=== PATIENT | male | born 1955 | race Caucasian/White ===

== ENCOUNTER → 2017-09-25 07:25 | Outpatient (CLI) | payer OTHER, SELFPAY ==
--- NOTE | 2017-09-25 | DI.MRI.S_ITS ---
PROCEDURE: MR KNEE LT WO CON INDICATIONS: LEFT KNEE PAIN TECHNIQUE: Noncontrast sagittal PD fast spin echo and T2 fast spin echo with fat saturation, sagittal 3-D FLASH with fat saturation; coronal T1 spin echo and PD fast spin echo with fat saturation, and axial PD fast spin echo with fat saturation through the knee. COMPARISON: Located Within [facility], CR, XR KNEE ARTHRITIC SERIES LT, 09/04/2017, 14:05. FINDINGS: Image quality: Excellent. Menisci: The lateral meniscus demonstrates normal morphology and internal signal but there is a nondisplaced horizontally oriented linear tear involving the posterior horn and mid body of the medial meniscus, extending to the inferior meniscal articular surface. The meniscal root ligaments appear intact. Cruciate ligaments: The anterior and posterior cruciate ligaments appear intact. Medial structures: The medial collateral ligament appears intact. The posterior oblique ligament, semimembranosus tendon insertions, oblique popliteal ligament, and meniscocapsular junction appear intact. Visualized portions of the pes anserinus tendons appear normal. No abnormal bursal fluid. Lateral structures: The lateral collateral ligament, long and short heads of the biceps femoris tendon appear intact. The popliteus tendon appears normal; the popliteofibular ligament appears intact. The posterosuperior and anteroinferior popliteomeniscal fascicles appear intact. The arcuate and fabellofibular ligaments appear intact, on either side of the lateral inferior geniculate artery. Iliotibial band appears normal. Anterior structures: The quadriceps and patellar tendons appear intact. Patellar alignment is normal. No femoral trochlear dysplasia or ventral trochlear prominence. No edema in the infrapatellar fat pad. Bones and cartilage: No bone marrow contusions or fractures. The cartilage of the medial femorotibial compartment, as well as the lateral facet of the patellofemoral compartment, appears mildly reduced in thickness. Joint space: There is a moderate excess of knee joint fluid, without intra-articular loose body. No Diaz's cyst. Normal appearing synovial plicae are incidentally noted. IMPRESSION: Posterior horn medial meniscal tear, nondisplaced, extending to the inferior meniscal articular surface which traverses into the posterior aspect of the mid body of the medial meniscus. This is associated with a moderate joint effusion without intra-articular loose body. Mild degenerative thinning of the articular cartilage is noted at the medial compartment and the lateral facet of the patellofemoral joint. Dictated by: Tayo Cardoza M.D. on 09/25/2017 at 14:23 Approved by: Tayo Cardoza M.D. on 09/25/2017 at 14:29
== END ==
PROVIDERS: PCP Internal Medicine; Visit Provider Orthopaedic Surgery
DX: M25.562 Pain in left knee (principal); M25.462 Effusion, left knee; M23.42 Loose body in knee, left knee
CPT/HCPCS: 73721

== ENCOUNTER → 2020-05-01 15:53 | Outpatient (CLI) | payer MEDICARE, OTHER, SELFPAY ==
--- NOTE | 2020-05-01 | DI.RAD.S_ITS ---
PROCEDURE: XR FOOT RT MIN 3V INDICATIONS: Non-pressure chronic ulcer of other part of unspecified foot TECHNIQUE: 3 views of the foot were acquired. COMPARISON: None. FINDINGS: Bones: No fractures or dislocations. No suspicious bony lesions. Mild diffuse interphalangeal joint space narrowing. No bony erosions. Soft tissues: No tibiotalar joint effusion. Achilles tendon appears normal. Vascular calcifications indicate atherosclerosis. IMPRESSION: 1. Mild diffuse interphalangeal joint degeneration. 2. Although no bony erosions are identified, plain film radiography is relatively insensitive in the acute phases of osteomyelitis and may not demonstrate radiographic changes for 15 days. If acute osteomyelitis is of clinical concern, nuclear medicine regional bone scan or MRI is recommended. Dictated by: David Monahan [facility] Interpreted: Jeimy Vegas MD on 05/01/2020 at 16:20 Approved by: Jeimy Vegas M.D. on 05/01/2020 at 18:14
== END ==
PROVIDERS: PCP Internal Medicine; Referring Provider Internal Medicine; Visit Provider Internal Medicine
DX: E11.621 Type 2 diabetes mellitus with foot ulcer (principal); L97.519 Non-pressure chronic ulcer of other part of right foot with unspecified severity; L03.115 Cellulitis of right lower limb; M19.071 Primary osteoarthritis, right ankle and foot
CPT/HCPCS: 73630; 80053; 80061; 85025; 85651; 86140

== ENCOUNTER → 2020-05-01 19:53 | Outpatient (ROUT) | payer MEDICARE, OTHER, SELFPAY ==
[2020-05-01 20:22] LABS: Add Manual Diff / Slide Review NO; Basophils Absolute Auto 100 /uL (0-100); Basophils Percent Auto 0.9 % (0-2); Eosinophils Absolute Auto 100 /uL (0-450); Eosinophils Percent Auto 1.4 % (2-4); Hematocrit 39.3 % (41-53); Hemoglobin 13.7 g/dL (13.5-17.5); Lymphocytes Absolute Auto 1900 /uL (1100-4500); Lymphocytes Percent Auto 20.8 % (25-40); Mean Corpuscular HGB Conc 34.8 % (30-36); Mean Corpuscular Hemoglobin 33.4 PG (26-34); Monocytes Absolute Auto 700 /uL (0-900); Neutrophils Absolute Auto 6400 /uL (1500-7000); Neutrophils Percent Auto 68.9 % (50-75); Platelet Count 232 X10^3/uL (150-400); Red Blood Cell Count 4.09 X10^6/uL (4.5-5.9); Red Cell Distribution Width 12.6 % (11.6-14.8); White Blood Cell Count 9.3 X10^3/uL (4.5-11.0)
[2020-05-01 20:25] LABS: HEMOLYSIS < 15 (0-50)
[2020-05-01 20:29] LABS: Alanine Aminotransferase 37 IU/L (<50); Albumin 4.8 g/dL (3.5-5.0); Albumin Globulin Ratio 2.1 (1.0-2.8); Alkaline Phosphatase 41 U/L (38-126); Aspartate Aminotransferase 34 IU/L (17-59); BUN Creatinine Ratio 20.8 (6-22); Bilirubin Total 0.4 mg/dL (0.2-1.3); Blood Urea Nitrogen 21 mg/dL (9-20); C-Reactive Protein Quant 0.6 mg/dL (<1.0); Calcium 9.9 mg/dL (8.4-10.2); Carbon Dioxide 27 mmol/L (22-32); Chloride 99 mmol/L (98-107); Cholesterol 238 mg/dL (140-199); Estimated Glomerular Filt Rate > 60.0 mL/min (>60); Globulin 2.3 g/dL (1.7-4.1); Glucose 247 mg/dL (80-110); HDL Cholesterol 49 mg/dL (40-60); Sodium 134 mmol/L (137-145); Total Protein 7.1 g/dL (6.3-8.2); Triglycerides 409 mg/dL (35-150)
[2020-05-01 20:32] LABS: Potassium 5.4 mmol/L (3.4-5.1)
[2020-05-01 20:48] LABS: Erythrocyte Sedimentation Rate 11 MM/HR (0-15)
== END ==
PROVIDERS: PCP Internal Medicine; Visit Provider Internal Medicine
DX: E11.621 Type 2 diabetes mellitus with foot ulcer (principal); L03.115 Cellulitis of right lower limb
CPT/HCPCS: 80053; 80061; 85025; 85651; 86140

== ENCOUNTER → 2020-05-12 15:13 | Outpatient (CLI) | payer MEDICARE, OTHER, SELFPAY ==
--- NOTE | 2020-05-12 15:18 | DI.MRI.S_ITS ---
PROCEDURE: MR RUN OFF 3 STAGES ABD START INDICATIONS: Peripheral vascular disease, unspecified TECHNIQUE: Precontrast axial and coronal TruFISP acquired through the abdomen and pelvis. Multi-station dynamic coronal MRA using Care Bolus timing from the kidneys to the ankles during the administration of contrast, with 3-dimensional maximum intensity projection (MIP) reformats constructed. COMPARISON: None. FINDINGS: Image quality: Excellent. ABDOMEN: Aorta: Aorta is normal in caliber and is patent. Renal arteries: [id number] left renal artery stenosis. Mesenteric vessels: Mild to moderate SMA stenosis. Celiac patent. SINGH grossly patent. Extravascular soft tissues: Visualized solid organs are normal in size on limited pre-contrast images. Bowel loops are normal in caliber. No free fluid. No retroperitoneal or mesenteric adenopathy by size criteria. No ventral hernias. Bones: Marrow demonstrates normal overall signal. PELVIS AND BILATERAL LOWER EXTREMITIES: Right sided vessels: Common iliac and external iliac common femoral are widely patent. Focal moderate distal SFA stenosis above Dwight's canal. Mild popliteal stenotic disease. Extensive anterior tibial disease with multifocal occlusions. Tibioperoneal trunk is patent. Short segment proximal peroneal occlusion. Either severe proximal posterior tibial artery stenotic disease or extensive proximal disease with short segment multifocal occlusions. Posterior tibial artery is normal caliber below the calf. Left sided vessels: Common iliac and external iliac and common femoral are patent. Mild diffuse SFA disease with focal moderate distal SFA stenosis. Multifocal popliteal stenosis including a severe geniculate or infrageniculate popliteal stenosis. Peroneal is occluded proximally. Anterior tibial has a short segment occlusion below the calf. Short segment proximal posterior tibial artery occlusion with recanalization at the mid calf, with a focal severe stenosis above the ankle. IMPRESSION: 1. No evidence of significant aortoiliac stenotic disease. 2. Right lower extremity runoff significant for a focal moderate distal SFA stenosis, extensive anterior tibial disease with multifocal occlusions, short segment proximal peroneal occlusion, and either severe proximal posterior tibial artery stenotic disease or multiple short segment proximal posterior tibial artery occlusions. 3. Left lower extremity runoff significant for a focal moderate distal SFA stenosis, multifocal popliteal stenosis including a severe geniculate or infrageniculate popliteal stenosis, and no continuous runoff vessels. The peroneal is occluded proximally. The anterior tibial has a short segment occlusion below the calf. There is a short segment proximal posterior tibial artery occlusion and a severe focal posterior tibial artery stenosis above the ankle. Dictated by: Yasmany Sterling M.D. on 05/13/2020 at 11:24 Approved by: Yasmany Sterling M.D. on 05/13/2020 at 11:36
== END ==
PROVIDERS: PCP Internal Medicine; Referring Provider Internal Medicine; Visit Provider Internal Medicine
DX: I70.203 Unspecified atherosclerosis of native arteries of extremities, bilateral legs (principal)
CPT/HCPCS: C8902; C8912; C8918; A9579

== ENCOUNTER → 2020-05-18 14:37 | Outpatient (CLI) | payer MEDICARE, OTHER, SELFPAY ==
--- NOTE | 2020-05-18 14:39 | DI.US.S_ITS ---
PROCEDURE: US CAROTID DOPPLER BI INDICATIONS: PVD TECHNIQUE: Color and pulse Doppler interrogation was performed of both carotid systems, with image documentation and velocity measurements. COMPARISON: [facility], , CAROTID ARTERY DOPPLER BILAT, 10/28/2015, 10:23. FINDINGS: Stenosis calculations are based on SRU (Society of Radiologists in Ultrasound) criteria. Right side: Brachial blood pressure: 132/78 mm Hg. Common carotid artery peak systolic velocity: 141 cm/sec. Internal carotid artery peak systolic velocity: 128 cm/sec. Internal carotid artery end diastolic velocity: 33 cm/sec. External carotid artery peak systolic velocity: 90 cm/sec. ICA/CCA peak systolic ratio: 0.9 . Phillips scale imaging description: Moderate scattered plaque. Percent internal carotid artery stenosis: 50-69% stenosis . Vertebral artery: Flow direction is antegrade. Left side: Brachial blood pressure: 140/85 mm Hg. Common carotid artery peak systolic velocity: 88 cm/sec. Internal carotid artery peak systolic velocity: 290 cm/sec. Internal carotid artery end diastolic velocity: 123 cm/sec. External carotid artery peak systolic velocity: 228 cm/sec. ICA/CCA peak systolic ratio: 3.4 . Phillips scale imaging description: Heavy scattered plaque. Percent internal carotid artery stenosis: 70% stenosis to near occlusion . Vertebral artery: Not visualized. IMPRESSION: 1. 70% stenosis to near occlusion of the left internal carotid artery. 2. 50-69% right internal carotid artery stenosis. Dictated by: David Monahan [facility] Interpreted: Yasmany Sterling MD on 05/18/2020 at 15:21 Approved by: Yasmany Sterling M.D. on 05/18/2020 at 16:01
== END ==
PROVIDERS: PCP Internal Medicine; Referring Provider Internal Medicine; Visit Provider Internal Medicine
DX: I65.23 Occlusion and stenosis of bilateral carotid arteries (principal)
CPT/HCPCS: 93880

== ENCOUNTER → 2020-08-10 18:52 | Outpatient (ROUT) | payer MEDICARE, OTHER, SELFPAY ==
[2020-08-10 19:54] LABS: BUN Creatinine Ratio 20.5 (6-22); Blood Urea Nitrogen 17 mg/dL (9-20); Carbon Dioxide 26 mmol/L (22-32); Chloride 95 mmol/L (98-107); Estimated Glomerular Filt Rate > 60.0 mL/min (>60); Glucose 141 mg/dL (80-110); HEMOLYSIS < 15 (0-50); Potassium 6.1 mmol/L (3.4-5.1); Sodium 133 mmol/L (137-145)
== END ==
PROVIDERS: PCP Internal Medicine; Visit Provider Internal Medicine
DX: R91.1 Solitary pulmonary nodule (principal); I10 Essential (primary) hypertension
CPT/HCPCS: 80048

== ENCOUNTER → 2020-08-12 14:40 | Outpatient (CLI) | payer MEDICARE, OTHER, SELFPAY ==
--- NOTE | 2020-08-12 14:42 | DI.NM.S_ITS ---
PROCEDURE: NM BONE 3 PHASE RADIOPHARMACEUTICAL: 19.3 mCi Tc-99m MDP IV. INDICATIONS: Cellulitis of right lower limb TECHNIQUE: Multiple bone scintigrams were obtained after intravenous injection of Tc-99m MDP, including flow, blood pool, and delayed images centered to the region of interest. COMPARISON: [facility], CR, XR FOOT RT MIN 3V, 05/01/2020, 16:06. FINDINGS: A triple phase bone scan was obtained, including flow, blood pool and delayed images of the ankles and feet. There is subtle increased uptake at the base of the left 1st toe on flow and blood pool images; otherwise symmetrical vascular activity to distal lower extremities on flow and blood pool images. Delayed images demonstrate mildly increased uptake in the left ankle, the base of the great toes bilaterally and the 1st interphalangeal joints bilaterally, compatible with osteoarthritic changes. IMPRESSION: 1. No scintigraphic findings to suggest osteomyelitis in the right ankle or foot. 2. Osteoarthritic changes bilaterally. 3. Subtle increased activity at the base of the left great toe on flow and blood pool images, probably secondary to nonspecific inflammation. If clinically indicated, x-ray of the left foot is recommended for correlation. Dictated by: Michael Bull M.D. on 08/13/2020 at 14:37 Approved by: Michael Bull M.D. on 08/13/2020 at 16:04
== END ==
PROVIDERS: PCP Internal Medicine; Referring Provider Internal Medicine; Visit Provider Internal Medicine
DX: R91.1 Solitary pulmonary nodule (principal); L03.115 Cellulitis of right lower limb
CPT/HCPCS: 78315; A9503

== ENCOUNTER → 2020-08-13 08:37 | Outpatient (CLI) | payer MEDICARE, OTHER, SELFPAY ==
--- NOTE | 2020-08-13 | DI.CT.S_ITS ---
PROCEDURE: CT CHEST W CON INDICATIONS: Pulmonary nodule Cellulitis of right lower limb TECHNIQUE: After the administration of intravenous contrast, 5 mm thick sections acquired from the pulmonary apices to the posterior costophrenic angles. 1 mm axial lung, 5 mm thick coronal and sagittal reformats and 7 mm axial MIP were acquired. For radiation dose reduction, the following was used: automated exposure control, adjustment of mA and/or kV according to patient size. COMPARISON: None. FINDINGS: Lungs: Bilateral scattered calcified granulomas. There is upper lobe predominant centrilobular emphysema. Multiple pulmonary nodules seen in the right upper lobe with clustered appearance and measuring up to 1.1 x 0.9 cm on image 97/3 and 1.1 x 1.0 cm on image 90/3. Additional smaller cluster nodule seen within the right middle lobe for example image 146/3. 1.1 x 0.7 cm nodule seen in the right lung base on image 167/3. Scattered atelectasis and scarring is noted. No acute consolidation Airway thickening in keeping with nonspecific bronchitis and/or reactive airways disease. Pleura: No pleural effusion or pneumothorax. Heart: Mildly enlarged heart. Coronary artery calcifications are present. Trace pericardial fluid. Chest nodes: There are calcified hilar and mediastinal lymph nodes. No pathologic enlargement. Thyroid gland: Nonspecific left-sided thyroid calcification Aorta: Normal in size. Pulmonary arteries: Normal. Esophagus: Normal. Upper abdomen: Hepatic steatosis. Bones: Diffuse spondylitic changes and facet disease. IMPRESSION: Multiple right-sided pulmonary nodules as detailed above with the largest seen in the right upper lobe measuring 1.1 cm and in the right lung base measuring 1.1 cm. Recommend further evaluation with PET-CT to assess the malignant potential given the absence of relevant comparison studies and/or, short interval [address] follow-up . Differential includes bronchogenic carcinoma, metastatic disease or sequela of chronic granulomatous disease. Airway thickening in keeping with nonspecific bronchitis and/or reactive airways disease. Emphysema Cardiomegaly and coronary atherosclerosis Additional chronic and incidental findings as above. Dictated by: Grey Perales M.D. on 08/13/2020 at 12:28 Approved by: Grey Perales M.D. on 08/13/2020 at 12:36
== END ==
PROVIDERS: PCP Internal Medicine; Referring Provider Internal Medicine; Visit Provider Internal Medicine
DX: R91.8 Other nonspecific abnormal finding of lung field (principal); L03.115 Cellulitis of right lower limb; J43.2 Centrilobular emphysema; I51.7 Cardiomegaly; I25.10 Atherosclerotic heart disease of native coronary artery without angina pectoris
CPT/HCPCS: 71260; Q9967

== ENCOUNTER → 2020-08-31 19:05 | Outpatient (ROUT) | payer MEDICARE, OTHER, SELFPAY ==
[2020-08-31 19:27] LABS: HEMOLYSIS < 15 (0-50); Potassium 4.9 mmol/L (3.4-5.1)
== END ==
PROVIDERS: PCP Internal Medicine; Visit Provider Internal Medicine
DX: E87.5 Hyperkalemia (principal)
CPT/HCPCS: 84132

== ENCOUNTER → 2020-09-21 15:09 | Outpatient (CLI) | payer MEDICARE, OTHER, SELFPAY ==
[2020-09-21 17:09] LABS: Digoxin 1.5 ng/mL (0.8-2.0)
== END ==
PROVIDERS: PCP Internal Medicine; Referring Provider Internal Medicine Cardiovascular Disease; Visit Provider Internal Medicine Cardiovascular Disease
DX: I48.91 Unspecified atrial fibrillation (principal); I65.22 Occlusion and stenosis of left carotid artery
CPT/HCPCS: 36415; 80162

== ENCOUNTER → 2020-12-04 09:21 | Outpatient (CLI) | payer MEDICARE, OTHER, SELFPAY | PROVIDERS: PCP Internal Medicine; Referring Provider Podiatrist; Visit Provider Nurse Practitioner Family | DX: I73.9 Peripheral vascular disease, unspecified (principal); L97.411 Non-pressure chronic ulcer of right heel and midfoot limited to breakdown of skin; E11.40 Type 2 diabetes mellitus with diabetic neuropathy, unspecified; E11.622 Type 2 diabetes mellitus with other skin ulcer; E11.59 Type 2 diabetes mellitus with other circulatory complications; I25.10 Atherosclerotic heart disease of native coronary artery without angina pectoris | CPT/HCPCS: 87070; 87075; 87205; 93922; 97602; 99204; 99214 ==

== ENCOUNTER → 2021-08-20 11:52 | Outpatient (CLI) | payer MEDICARE, OTHER, SELFPAY ==
[2021-08-20 13:14] LABS: Hematocrit 40.4 % (41-53); Hemoglobin 13.9 g/dL (13.5-17.5); Mean Corpuscular HGB Conc 34.5 % (30-36); Mean Corpuscular Hemoglobin 33.5 PG (26-34); Platelet Count 207 X10^3/uL (150-400); Red Blood Cell Count 4.17 X10^6/uL (4.5-5.9); Red Cell Distribution Width 12.7 % (11.6-14.8); White Blood Cell Count 7.3 X10^3/uL (4.5-11.0)
[2021-08-20 13:44] LABS: Hemoglobin A1C% w Est Avg Glu 6.6 % (4.0-6.0)
[2021-08-20 13:48] LABS: Alanine Aminotransferase 15 IU/L (<50); Albumin 4.7 g/dL (3.5-5.0); Albumin Globulin Ratio 2.6 (1.0-2.8); Alkaline Phosphatase 35 U/L (38-126); Aspartate Aminotransferase 22 IU/L (17-59); BUN Creatinine Ratio 16.7 (6-22); Bilirubin Total 0.5 mg/dL (0.2-1.3); Blood Urea Nitrogen 16 mg/dL (9-20); Calcium 9.6 mg/dL (8.4-10.2); Carbon Dioxide 27 mmol/L (22-32); Chloride 102 mmol/L (98-107); Cholesterol 191 mg/dL (140-199); Estimated Glomerular Filt Rate > 60 mL/min (>60); Globulin 1.8 g/dL (1.7-4.1); Glucose 122 mg/dL (80-110); HDL Cholesterol 53 mg/dL (40-60); HEMOLYSIS < 15 (0-50); LDL Cholesterol Calculated 102 mg/dL (<100); Potassium 5.1 mmol/L (3.4-5.1); Sodium 137 mmol/L (137-145); Total Protein 6.5 g/dL (6.3-8.2); Triglycerides 179 mg/dL (35-150)
[2021-08-20 15:05] LABS: TSH w/ Reflex to FT4 2.03 uIU/mL (0.47-4.68)
== END ==
PROVIDERS: PCP Internal Medicine; Referring Provider Internal Medicine; Visit Provider Internal Medicine
DX: E78.2 Mixed hyperlipidemia (principal); E11.51 Type 2 diabetes mellitus with diabetic peripheral angiopathy without gangrene; I48.20 Chronic atrial fibrillation, unspecified
CPT/HCPCS: 36415; 80053; 80061; 83036; 84443; 85027

== ENCOUNTER → 2022-02-23 12:22 | Outpatient (CLI) | payer MEDICARE, OTHER, SELFPAY ==
[2022-02-23 13:14] LABS: Influenza A - CEPHEID Flu A NEGATIVE (NEGATIVE); Influenza B - CEPHEID Flu B NEGATIVE (NEGATIVE); Respiratory Syncytial Virus POSITIVE (Negative)
[2022-02-23 13:40] LABS: COVID-19 CEPHEID 4-PLEX PCR Negative (Negative)
== END ==
PROVIDERS: PCP Internal Medicine; Visit Provider Nurse Practitioner Family
DX: R05.9 Cough, unspecified (principal)
CPT/HCPCS: 0241U

== ENCOUNTER → 2022-02-23 12:44 | Outpatient (CLI) | payer MEDICARE, OTHER, SELFPAY ==
--- NOTE | 2022-02-23 12:46 | DI.RAD.S_ITS ---
PROCEDURE: XR CHEST 2V INDICATIONS: Cough TECHNIQUE: 2 views of the chest were acquired. COMPARISON: NM, NM PET CT FUSION SKULL 2 THIGH, 09/02/2020, 9:55. [facility], CT, CT CHEST W CON, 08/13/2020, 9:01. FINDINGS: Surgical changes and devices: None. Lungs and pleura: Lungs are clear, aside from 2 nodular opacities involving the right upper lobe which appears similar prior CT scan dated 08/13/2020. No pleural effusions or pneumothorax. Mediastinum: Mediastinal contours are normal. Heart size is normal. Bones and chest wall: No suspicious bony abnormalities. Soft tissues appear unremarkable. IMPRESSION: 1. Nodular opacities redemonstrated involving the right upper lobe which appears similar to prior CT scan dated 08/13/2020 and appear to be benign nodules based on PET scan findings dated 09/02/2020. 2. No source for cough identified. Dictated by: David MCGEE Interpreted: Pedro Lua MD on 02/23/2022 at 13:21 Approved by: Pedro Lua M.D. on 02/23/2022 at 17:42
== END ==
PROVIDERS: PCP Internal Medicine; Referring Provider Nurse Practitioner Family; Visit Provider Nurse Practitioner Family
DX: R05.9 Cough, unspecified (principal)
CPT/HCPCS: 0241U; 71046

== ENCOUNTER → 2022-08-11 09:33 | Outpatient (CLI) | payer MEDICARE, OTHER, SELFPAY ==
[2022-08-11 10:53] LABS: Hematocrit 42.3 % (41-53); Hemoglobin 14.7 g/dL (13.5-17.5); Mean Corpuscular HGB Conc 34.8 % (30-36); Mean Corpuscular Volume 94.8 fL (80-100); Platelet Count 188 X10^3/uL (150-400); Red Blood Cell Count 4.46 X10^6/uL (4.5-5.9); Red Cell Distribution Width 12.7 % (11.6-14.8); White Blood Cell Count 6.7 X10^3/uL (4.5-11.0)
[2022-08-11 11:10] LABS: Alanine Aminotransferase 21 IU/L (<50); Albumin 4.6 g/dL (3.5-5.0); Albumin Globulin Ratio 1.8 (1.0-2.8); Alkaline Phosphatase 47 U/L (38-126); Aspartate Aminotransferase 24 IU/L (17-59); BUN Creatinine Ratio 15.7 (6-22); Bilirubin Total 0.6 mg/dL (0.2-1.3); Blood Urea Nitrogen 13 mg/dL (9-20); Calcium 9.7 mg/dL (8.4-10.2); Carbon Dioxide 32 mmol/L (22-32); Chloride 100 mmol/L (98-107); Cholesterol 217 mg/dL (140-199); Estimated Glomerular Filt Rate > 60 mL/min (>60); Globulin 2.5 g/dL (1.7-4.1); Glucose 173 mg/dL (80-110); HDL Cholesterol 54 mg/dL (40-60); HEMOLYSIS < 15 (0-50); LDL Cholesterol Calculated 133 mg/dL (<100); Potassium 5.1 mmol/L (3.4-5.1); Sodium 139 mmol/L (137-145); Total Protein 7.1 g/dL (6.3-8.2); Triglycerides 150 mg/dL (35-150)
[2022-08-11 11:14] LABS: Creatinine Urine Random 35.2 mg/dL
[2022-08-11 11:19] LABS: Microalbumi Creatinin Ratio Ur 110.7 ug/mg CR (<30); Microalbumin Urine Random 3.9 mg/dL (0-1.6)
[2022-08-11 11:38] LABS: TSH w/ Reflex to FT4 2.39 uIU/mL (0.47-4.68)
== END ==
PROVIDERS: PCP Internal Medicine; Referring Provider Internal Medicine; Visit Provider Internal Medicine
DX: E78.2 Mixed hyperlipidemia (principal); R55 Syncope and collapse; I48.20 Chronic atrial fibrillation, unspecified; I25.10 Atherosclerotic heart disease of native coronary artery without angina pectoris; E11.51 Type 2 diabetes mellitus with diabetic peripheral angiopathy without gangrene
CPT/HCPCS: 36415; 80053; 80061; 82043; 82570; 83036; 84443; 85027

== ENCOUNTER 2022-08-18 06:19 | Emergency (ER) | payer MEDICARE, OTHER, SELFPAY ==
[2022-08-18] VITALS (19 sets, daily range): BP systolic 135–186; BP diastolic 79–113; PULSE 78–130; RESP 11–22; TEMP 36.1; O2SAT 90–96; BMI 27.1
--- NOTE | 2022-08-18 06:23 | DI.RAD.S_ITS ---
PROCEDURE: XR CHEST 1V INDICATIONS: SOB TECHNIQUE: One view of the chest was acquired. COMPARISON: [facility], , XR CHEST 2V, 02/23/2022, 12:49. FINDINGS: Surgical changes and devices: Leadless cardiac device projects over the left chest. Lungs and pleura: Stable nodular densities in the right upper lung zone. No pleural effusions or pneumothorax. No focal consolidation. Mediastinum: Mediastinal contours appear stable. Heart size is mildly enlarged. Bones and chest wall: No suspicious bony lesions. Overlying soft tissues appear unremarkable. IMPRESSION: Redemonstration of mild cardiomegaly. No acute cardiopulmonary abnormality seen. No focal consolidation. Dictated by: Alcides Delatorre M.D. on 08/18/2022 at 7:44 Approved by: Alcides Delatorre M.D. on 08/18/2022 at 7:50
[2022-08-18 06:41] LABS: Add Manual Diff / Slide Review NO; Basophils Absolute Auto 100 /uL (0-100); Eosinophils Absolute Auto 300 /uL (0-450); Eosinophils Percent Auto 1.8 % (2-4); Hematocrit 43.5 % (41-53); Hemoglobin 14.7 g/dL (13.5-17.5); Lymphocytes Absolute Auto 3200 /uL (1100-4500); Lymphocytes Percent Auto 23.5 % (25-40); Mean Corpuscular HGB Conc 33.9 % (30-36); Mean Corpuscular Hemoglobin 32.7 PG (26-34); Mean Corpuscular Volume 96.5 fL (80-100); Monocytes Absolute Auto 1100 /uL (0-900); Monocytes Percent Auto 7.7 % (3-14); Neutrophils Absolute Auto 9100 /uL (1500-7000); Platelet Count 247 X10^3/uL (150-400); Red Blood Cell Count 4.51 X10^6/uL (4.5-5.9); Red Cell Distribution Width 12.5 % (11.6-14.8); White Blood Cell Count 13.8 X10^3/uL (4.5-11.0)
--- NOTE | 2022-08-18 06:42 | ED.CHESTPAIN ---
HPI - Chest Pain <Octavio Calderon, DO - Last Filed: 08/18/22 18:05> General Chief Complaint: Chest Pain Stated Complaint: hard time breathing Time Seen by Provider: 08/18/22 06:22 Source: patient and family Mode of arrival: Wheelchair Limitations: no limitations History of Present Illness HPI narrative: Patient is a 67-year-old male. Has not extensive vascular injury to include peripheral cardiovascular and carotid vascular issues. He also his extensive cardiac history. Has had stents placed approximately 11 years ago. He is also in persistent AFib. He is on anticoagulation. 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 EKG at that time showed atrial fibrillation with a slow ventricular response. Review of the note showed that his heart rate was in the 40s. His metoprolol was decreased from 100 mg a day to 50 mg a day. He states he normally takes that medication in the morning however he is not taken it yet today. He states that approximately 0500 hours this morning he was awake. He was sitting at home. He states that he had a fairly sudden onset of some chest discomfort and shortness of breath. He states he was not feel like his heart was beating fast at the time. His took his blood pressure and had a systolic blood pressure in the 160s and a heart rate in the 60s. The chest discomfort and shortness of breath continued. He did take some nitroglycerin at home. This was an old prescription however he does think that it actually helped his symptoms quite a bit. Here in the emergency department he states that his chest discomfort is almost gone and his shortness of breath has almost completely resolved although he is not back to normal. He frequently does get chest discomfort that resolves on its own but this is somewhat different and more intense than what it normally is. Also while driving to the emergency department today he had what appears to be a syncopal episode. This was reported by his . She states that he became very rigid in his eyes rolled back into his head and he slumped 1 side. She thinks that the episode lasted approximately 30 seconds but completely resolved. Prior to the episode the patient states that he did feel like his heart was beating fast and he was short of breath but he does not specifically remember the event. There did not appear to be any postictal state afterwards. This is very similar to the 2 syncopal episodes that he had back in April and May of this year. Related Data Home Medications Medication Instructions Recorded Confirmed latanoprost 0.005 % eye drops 1 drp EYE-BOTH QPM 08/20/21 08/11/22 nitroglycerin 2 % transdermal 1 inch transdermal DAILY PRN 08/20/21 08/11/22 ointment (Nitro-Bid) rivaroxaban 20 mg tablet (Xarelto) 20 mg PO DAILY 08/20/21 08/11/22 metoprolol succinate 100 mg 50 mg PO DAILY 08/11/22 08/11/22 tablet,extended release 24 hr Previous Rx's Medication Instructions Recorded albuterol sulfate 90 mcg/actuation 2 puff inhalation Q6H PRN 08/20/21 aerosol inhaler shortness of breath or wheezing #8.5 grams metformin 500 mg tablet 500 mg PO BID #180 tabs 08/20/21 benazepril 20 mg tablet 20 mg PO DAILY #90 tabs 10/11/21 Diabetic orthotics/diabetic shoes #1 ea 11/22/21 benzonatate 100 mg capsule 100 mg PO BID PRN cough #20 caps 02/23/22 pentoxifylline 400 mg See Rx Instructions .Route 04/22/22 tablet,extended release .COMPLEX #270 tabs tramadol 50 mg tablet 50 mg PO Q6H PRN pain #90 tabs 08/12/22 Allergies Allergy/AdvReac Type Severity Reaction Status Date / Time Penicillins Allergy Mild Rash Verified 08/11/22 07:52 allopurinol AdvReac Mild Malaise Verified 08/11/22 07:52 amitriptyline AdvReac Mild lethargy Verified 08/11/22 07:52 atorvastatin AdvReac Mild vision loss Verified 08/11/22 07:52 duloxetine [From Cymbalta] AdvReac Mild Zombie like Verified 08/11/22 07:52 gabapentin AdvReac Mild edema Verified 08/11/22 07:52 glyburide AdvReac Mild aches Verified 08/11/22 07:52 peanut AdvReac Mild Vomiting Verified 08/11/22 07:52 pregabalin [From Lyrica] AdvReac Mild Gastrointestinal Verified 08/11/22 07:52 Upset red yeast rice AdvReac Mild Muscle Pain Verified 08/11/22 07:52 rosuvastatin [From Crestor] AdvReac Mild Muscle Pain Verified 08/11/22 07:52 simvastatin AdvReac Mild muscle Verified 08/11/22 07:52 aches sitagliptin [From Januvia] AdvReac Mild Muscle Pain Verified 08/11/22 07:52 tramadol AdvReac Mild malaise Verified 08/11/22 07:52 antihistamines AdvReac Mild Uncoded 08/11/22 07:52 Review of Systems <Octavio Calderon DO - Last Filed: 08/18/22 18:05> Review of Systems ROS Unobtainable: All systems reviewed & are unremarkable except as noted in HPI and below Patient History <Octavio Calderon DO - Last Filed: 08/18/22 18:05> Medical History Asthma Cataracts, bilateral (~2011) Chronic anticoagulation Chronic atrial fibrillation Coronary artery disease (~2000) Do not resuscitate Erectile dysfunction Essential hypertension Fibromyalgia (~2017) Glaucoma (~2020) Gout (~2017) Mixed hyperlipidemia Peripheral arterial disease Primary osteoarthritis involving multiple joints Restless leg syndrome (~1999) Rosacea Type 2 diabetes mellitus with peripheral artery disease (~2001) Venous insufficiency Surgical History Anesthesia History of vascular surgery (~05/2020) Family History Father Stroke Mother Stroke Hypertension History of heart disease Social History Smoking Status: Never smoker Smoking Status: Never smoker alcohol intake frequency: a few times a month Substance Use Type: does not use Exam <DO Cielo Neville Last Filed: 08/18/22 18:05> Initial Vital Signs Initial Vital Signs: Vital Signs Temperature 97 F L 08/18/22 06:25 Pulse Rate 119 H 08/18/22 06:25 Respiratory Rate 18 08/18/22 06:25 Blood Pressure 179/102 H 08/18/22 06:25 Pulse Oximetry 94 08/18/22 06:25 Oxygen Delivery Method Room Air 08/18/22 06:25 Const General: cooperative, comfortable and well groomed HENMT Head: normal to inspection and normocephalic Resp Effort & Inspection: normal respiratory effort Auscultation: clear to auscultation bilaterally Cardio Rate: tachycardic Rhythm: abnormal rhythm GI Inspection: normal to inspection and non-distended Skin General: no rashes or lesions noted Neuro General: patient alert, patient awake, patient oriented x3 and moves all extremities Cognition: normal cognition Speech: speech normal Extrem General: No edema <Rhett Metzger DO - Last Filed: 08/18/22 11:27> Initial Vital Signs Initial Vital Signs: Vital Signs Temperature 97 F L 08/18/22 06:25 Pulse Rate 119 H 08/18/22 06:25 Respiratory Rate 18 08/18/22 06:25 Blood Pressure 179/102 H 08/18/22 06:25 Pulse Oximetry 94 08/18/22 06:25 Oxygen Delivery Method Room Air 08/18/22 06:25 Scores <Octavio Calderon DO - Last Filed: 08/18/22 18:05> GCS [place] coma scale eye opening: Spontaneous [place] coma scale verbal response: Orientated [place] coma scale motor response: Obey commands [place] coma scale total score: 15 HEART Score Heart Score history: Moderately Suspicious Heart Score EKG: Non-Specific repolarization disturbance Heart Score Age: > or = 65 years old Heart Score risk factors: > 3 risk factors or hx of atherosclerotic disease Heart Score troponin: < or = to normal limit Heart Score Total: 6 <Rhett Metzger DO - Last Filed: 08/18/22 11:27> GCS [place] coma scale total score: 15 HEART Score Heart Score Total: 6 Course <Octavio Calderon Last Filed: 08/18/22 18:05> Orders Ordered: ED Orders 08/18/22 09:28 Trop I [Troponin I] Stat 08/18/22 09:29 EKG-12 Lead Stat 08/18/22 10:16 COVID19 -Nasal RAPID Stat Discontinued Medications Metoprolol Succinate (Metoprolol Er 50 Mg Tablet) 50 mg PO NOW ONE Stop: 08/18/22 06:42 Last Admin: 08/18/22 06:52 Dose: 50 mg Documented By: AP Nitroglycerin (Nitroglycerin 0.4 Mg Sl Tab) 0.4 mg SL NOW ONE Stop: 08/18/22 07:43 Last Admin: 08/18/22 07:46 Dose: 0.4 mg Documented By: AT Vital Signs Vital signs: Vital Signs - 8 hr 08/18/22 10:30 08/18/22 10:30 08/18/22 11:00 Pulse Rate 92 H Respiratory Rate 15 Blood Pressure 162/98 H 141/98 H Pulse Oximetry 95 Oxygen Delivery Method Room Air 08/18/22 11:00 08/18/22 11:30 08/18/22 11:30 Pulse Rate 98 H 84 Respiratory Rate 12 12 Blood Pressure 162/95 H Pulse Oximetry 94 94 Oxygen Delivery Method Room Air 08/18/22 12:00 08/18/22 12:01 08/18/22 12:01 Pulse Rate 96 H 107 H Respiratory Rate 12 12 Blood Pressure 149/102 H Pulse Oximetry 96 94 Oxygen Delivery Method Room Air 08/18/22 12:30 08/18/22 12:30 08/18/22 13:00 Pulse Rate 78 Respiratory Rate 12 Blood Pressure 164/93 H 135/94 H Pulse Oximetry 95 Oxygen Delivery Method 08/18/22 13:00 Pulse Rate 87 Respiratory Rate 13 Blood Pressure Pulse Oximetry 96 Oxygen Delivery Method Room Air <Rhett Metzger DO - Last Filed: 08/18/22 11:27> Orders Ordered: ED Orders 08/18/22 09:28 Trop I [Troponin I] Stat 08/18/22 09:29 EKG-12 Lead Stat 08/18/22 10:16 COVID19 -Nasal RAPID Stat Discontinued Medications Metoprolol Succinate (Metoprolol Er 50 Mg Tablet) 50 mg PO NOW ONE Stop: 08/18/22 06:42 Last Admin: 08/18/22 06:52 Dose: 50 mg Documented By: AP Nitroglycerin (Nitroglycerin 0.4 Mg Sl Tab) 0.4 mg SL NOW ONE Stop: 08/18/22 07:43 Last Admin: 08/18/22 07:46 Dose: 0.4 mg Documented By: AT Consultations Consultation #1: discussed with Dr. Lopez ([facility]). After discussing presentation, and clinical course. He requests patient be transferred to [place]. Currently no beds due to staffing, promising for this afternoon. No specific intervention. Will call hospitalist. Time: 09:07 Consultation #2: discussed with hospitalist at [place], happy to accept Consultation #3: call back with second troponin result. No heparin given use of Xarelto Time: 10:20 Vital Signs Vital signs: Vital Signs - 8 hr 08/18/22 10:30 08/18/22 10:30 08/18/22 11:00 Pulse Rate 92 H Respiratory Rate 15 Blood Pressure 162/98 H 141/98 H Pulse Oximetry 95 Oxygen Delivery Method Room Air 08/18/22 11:00 08/18/22 11:30 08/18/22 11:30 Pulse Rate 98 H 84 Respiratory Rate 12 12 Blood Pressure 162/95 H Pulse Oximetry 94 94 Oxygen Delivery Method Room Air 08/18/22 12:00 08/18/22 12:01 08/18/22 12:01 Pulse Rate 96 H 107 H Respiratory Rate 12 12 Blood Pressure 149/102 H Pulse Oximetry 96 94 Oxygen Delivery Method Room Air 08/18/22 12:30 08/18/22 12:30 08/18/22 13:00 Pulse Rate 78 Respiratory Rate 12 Blood Pressure 164/93 H 135/94 H Pulse Oximetry 95 Oxygen Delivery Method 08/18/22 13:00 Pulse Rate 87 Respiratory Rate 13 Blood Pressure Pulse Oximetry 96 Oxygen Delivery Method Room Air MDM - Chest Pain <Octavio Calderon, - Last Filed: 08/18/22 18:05> Lab Data 08/18/22 06:30 08/18/22 06:30 Labs: Lab Results 08/18/22 08/18/22 08/18/22 Range/Units 06:30 06:30 06:30 WBC 13.8 H (4.5-11.0) X10^3/uL RBC 4.51 (4.5-5.9) X10^6/uL Hgb 14.7 (13.5-17.5) g/dL Hct 43.5 (41-53) % MCV 96.5 (80-100) fL MCH 32.7 (26-34) PG MCHC 33.9 (30-36) % RDW 12.5 (11.6-14.8) % Plt Count 247 (150-400) X10^3/uL Neut % (Auto) 66.0 (50-75) % Lymph % (Auto) 23.5 L (25-40) % Dickinson % (Auto) 7.7 (3-14) % Eos % (Auto) 1.8 L (2-4) % Baso % (Auto) 1.0 (0-2) % Neut # (Auto) 9100 H (7260-2467) /uL Lymph # (Auto) 3200 (7985-0183) /uL Dickinson # (Auto) 1100 H (0-900) /uL Eos # (Auto) 300 (0-450) /uL Baso # (Auto) 100 (0-100) /uL PT 12.1 (10.1-12.7) SECONDS INR 1.1 (0.9-1.3) APTT 27 (26-36) SECONDS Sodium 133 L (137-145) mmol/L Potassium 4.1 (3.4-5.1) mmol/L Chloride 94 L (98-107) mmol/L Carbon Dioxide 24 (22-32) mmol/L BUN 18 (9-20) mg/dL Creatinine 0.96 (0.66-1.25) mg/dL Estimated GFR > 60 (>60) mL/min BUN/Creatinine Ratio 18.8 (6-22) Glucose 331 H D (80-110) mg/dL Calcium 9.6 (8.4-10.2) mg/dL Magnesium 1.7 (1.6-2.3) mg/dL Total Bilirubin 0.8 (0.2-1.3) mg/dL AST 29 (17-59) IU/L ALT 26 (<50) IU/L Alkaline Phosphatase 53 (38-126) U/L Total Creatine Kinase 47 L (55-170) U/L CK-MB (CK-2) TNP CK-MB (CK-2) Rel Index TNP Troponin I 0.014 (0.01-0.034) ng/mL NT-Pro-B Natriuret Pep 1070 H (<125) pg/mL Total Protein 7.1 (6.3-8.2) g/dL Albumin 4.7 (3.5-5.0) g/dL Globulin 2.4 (1.7-4.1) g/dL Albumin/Globulin Ratio 2.0 (1.0-2.8) Lipase 126 (23-300) U/L SARS-CoV-2 (PCR) (Negative) 08/18/22 08/18/22 Range/Units 09:28 10:16 WBC (4.5-11.0) X10^3/uL RBC (4.5-5.9) X10^6/uL Hgb (13.5-17.5) g/dL Hct (41-53) % MCV (80-100) fL MCH (26-34) PG MCHC (30-36) % RDW (11.6-14.8) % Plt Count (150-400) X10^3/uL Neut % (Auto) (50-75) % Lymph % (Auto) (25-40) % Dickinson % (Auto) (3-14) % Eos % (Auto) (2-4) % Baso % (Auto) (0-2) % Neut # (Auto) (9461-6626) /uL Lymph # (Auto) (5366-3617) /uL Dickinson # (Auto) (0-900) /uL Eos # (Auto) (0-450) /uL Baso # (Auto) (0-100) /uL PT (10.1-12.7) SECONDS INR (0.9-1.3) APTT (26-36) SECONDS Sodium (137-145) mmol/L Potassium (3.4-5.1) mmol/L Chloride (98-107) mmol/L Carbon Dioxide (22-32) mmol/L BUN (9-20) mg/dL Creatinine (0.66-1.25) mg/dL Estimated GFR (>60) mL/min BUN/Creatinine Ratio (6-22) Glucose (80-110) mg/dL Calcium (8.4-10.2) mg/dL Magnesium (1.6-2.3) mg/dL Total Bilirubin (0.2-1.3) mg/dL AST (17-59) IU/L ALT (<50) IU/L Alkaline Phosphatase (38-126) U/L Total Creatine Kinase (55-170) U/L CK-MB (CK-2) CK-MB (CK-2) Rel Index Troponin I 0.175 H* (0.01-0.034) ng/mL NT-Pro-B Natriuret Pep (<125) pg/mL Total Protein (6.3-8.2) g/dL Albumin (3.5-5.0) g/dL Globulin (1.7-4.1) g/dL Albumin/Globulin Ratio (1.0-2.8) Lipase (23-300) U/L SARS-CoV-2 (PCR) Negative (Negative) Imaging Data Chest x-ray: Radiologist's Impression: Cardiomegaly. No acute pulmonary finding ECG Data Attestation: I personally reviewed and interpreted this ECG as follows: Prior ECG tracings: available for review Interpretation: Atrial fibrillation Ventricular rate 120 Normal axis QRS [address] T wave changes MDM Narrative Medical decision making narrative: Patient has a history of permanent AFib. He is anticoagulated. He is in AFib with rapid ventricular response. Review of his prior cardiology notes states that approximately 1 week ago his metoprolol was cut in half in his digoxin was discontinued secondary to a bradycardia problems. He is scheduled for multiple testing to include stress test which he has yet to have performed. He does have a ZIO patch on. He did take 2 nitroglycerin prior to arrival which he thinks maybe helped his discomfort and shortness of breath. Plan to be is to give him his morning dose of metoprolol to see if this will help his heart rate. His EKG other than the rate being high today is very similar in appearance to the EKG from his cardiology visit 1 week ago. Chest x-ray shows no signs of pneumonia. Care turned over to Dr. Metzger to follow-up on labs and disposition. <Rhett Metzger, - Last Filed: 08/18/22 11:27> Lab Data Labs: Lab Results 08/18/22 08/18/22 08/18/22 Range/Units 06:30 06:30 06:30 WBC 13.8 H (4.5-11.0) X10^3/uL RBC 4.51 (4.5-5.9) X10^6/uL Hgb 14.7 (13.5-17.5) g/dL Hct 43.5 (41-53) % MCV 96.5 (80-100) fL MCH 32.7 (26-34) PG MCHC 33.9 (30-36) % RDW 12.5 (11.6-14.8) % Plt Count 247 (150-400) X10^3/uL Neut % (Auto) 66.0 (50-75) % Lymph % (Auto) 23.5 L (25-40) % Dickinson % (Auto) 7.7 (3-14) % Eos % (Auto) 1.8 L (2-4) % Baso % (Auto) 1.0 (0-2) % Neut # (Auto) 9100 H (0998-8150) /uL Lymph # (Auto) 3200 (3644-1556) /uL Dickinson # (Auto) 1100 H (0-900) /uL Eos # (Auto) 300 (0-450) /uL Baso # (Auto) 100 (0-100) /uL PT 12.1 (10.1-12.7) SECONDS INR 1.1 (0.9-1.3) APTT 27 (26-36) SECONDS Sodium 133 L (137-145) mmol/L Potassium 4.1 (3.4-5.1) mmol/L Chloride 94 L (98-107) mmol/L Carbon Dioxide 24 (22-32) mmol/L BUN 18 (9-20) mg/dL Creatinine 0.96 (0.66-1.25) mg/dL Estimated GFR > 60 (>60) mL/min BUN/Creatinine Ratio 18.8 (6-22) Glucose 331 H D (80-110) mg/dL Calcium 9.6 (8.4-10.2) mg/dL Magnesium 1.7 (1.6-2.3) mg/dL Total Bilirubin 0.8 (0.2-1.3) mg/dL AST 29 (17-59) IU/L ALT 26 (<50) IU/L Alkaline Phosphatase 53 (38-126) U/L Total Creatine Kinase 47 L (55-170) U/L CK-MB (CK-2) TNP CK-MB (CK-2) Rel Index TNP Troponin I 0.014 (0.01-0.034) ng/mL NT-Pro-B Natriuret Pep 1070 H (<125) pg/mL Total Protein 7.1 (6.3-8.2) g/dL Albumin 4.7 (3.5-5.0) g/dL Globulin 2.4 (1.7-4.1) g/dL Albumin/Globulin Ratio 2.0 (1.0-2.8) Lipase 126 (23-300) U/L SARS-CoV-2 (PCR) (Negative) 08/18/22 08/18/22 Range/Units 09:28 10:16 WBC (4.5-11.0) X10^3/uL RBC (4.5-5.9) X10^6/uL Hgb (13.5-17.5) g/dL Hct (41-53) % MCV (80-100) fL MCH (26-34) PG MCHC (30-36) % RDW (11.6-14.8) % Plt Count (150-400) X10^3/uL Neut % (Auto) (50-75) % Lymph % (Auto) (25-40) % Dickinson % (Auto) (3-14) % Eos % (Auto) (2-4) % Baso % (Auto) (0-2) % Neut # (Auto) (7189-8541) /uL Lymph # (Auto) (9303-6815) /uL Dickinson # (Auto) (0-900) /uL Eos # (Auto) (0-450) /uL Baso # (Auto) (0-100) /uL PT (10.1-12.7) SECONDS INR (0.9-1.3) APTT (26-36) SECONDS Sodium (137-145) mmol/L Potassium (3.4-5.1) mmol/L Chloride (98-107) mmol/L Carbon Dioxide (22-32) mmol/L BUN (9-20) mg/dL Creatinine (0.66-1.25) mg/dL Estimated GFR (>60) mL/min BUN/Creatinine Ratio (6-22) Glucose (80-110) mg/dL Calcium (8.4-10.2) mg/dL Magnesium (1.6-2.3) mg/dL Total Bilirubin (0.2-1.3) mg/dL AST (17-59) IU/L ALT (<50) IU/L Alkaline Phosphatase (38-126) U/L Total Creatine Kinase (55-170) U/L CK-MB (CK-2) CK-MB (CK-2) Rel Index Troponin I 0.175 H* (0.01-0.034) ng/mL NT-Pro-B Natriuret Pep (<125) pg/mL Total Protein (6.3-8.2) g/dL Albumin (3.5-5.0) g/dL Globulin (1.7-4.1) g/dL Albumin/Globulin Ratio (1.0-2.8) Lipase (23-300) U/L SARS-CoV-2 (PCR) Negative (Negative) MDM Narrative Medical decision making narrative: Patient has a history of permanent AFib. He is anticoagulated. He is in AFib with rapid ventricular response. Review of his prior cardiology notes states that approximately 1 week ago his metoprolol was cut in half in his digoxin was discontinued secondary to a bradycardia problems. He is scheduled for multiple testing to include stress test which he has yet to have performed. He does have a ZIO patch on. He did take 2 nitroglycerin prior to arrival which he thinks maybe helped his discomfort and shortness of breath. Plan to be is to give him his morning dose of metoprolol to see if this will help his heart rate. His EKG other than the rate being high today is very similar in appearance to the EKG from his cardiology visit 1 week ago. Chest x-ray shows no signs of pneumonia. Care turned over to Dr. Metzger to follow-up on labs and disposition. [0700] (Yassine) Patient received in sign out from [Kvng]. I have reviewed the clinical course and performed an independent history and physical exam. Patient currently having 1/10 chest pressure, this time on the right side of his chest which is different than what he felt earlier, different than what he took his nitro for. Regarding this discomfort he denies any obvious provocation, palliation or radiation. He denies associated symptoms such as dizziness, weakness or lightheadedness but he does admit it is still slightly short of breath <Rhett Metzger, DO - Last Filed: 08/18/22 11:27> Critical Care Time Critical Care Time: Yes Total Critical Care Time: 30 Attestation: The high probability of a clinically significant, sudden or life threatening deterioration of the [CV] system(s) required my full and direct attention, intervention and personal management. The aggregate critical care time was [30] minutes. This time is in addition to time spent performing reported procedures but includes the following: [x] Data Review and interpretation [x] Patient assessment and monitoring of vital signs [x] Documentation [x] Medication orders and management Discharge Plan Departure Patient Disposition: [facility] Clinical Impression: Acute non-ST elevation myocardial infarction (NSTEMI), Syncope Prescriptions: No Action benzonatate 100 mg capsule 100 mg PO BID PRN (Reason: cough) Qty: 20 0RF benazepril 20 mg tablet 20 mg PO DAILY Qty: 90 3RF (DME) Diabetic orthotics/diabetic shoes See Rx Instructions .Route .MEDSUPPLY Qty: 1 0RF Rx Instructions: As directed; Diabetic shoes and Orthotics. [facility] Fax #: [phone] Phone #: [phone] pentoxifylline 400 mg tablet extended release See Rx Instructions .ROUTE .COMPLEX Qty: 270 3RF Dose Instruction: TAKE 1 TABLET BY MOUTH THREE TIMES DAILY WITH MEALS Rx Instructions: TAKE 1 TABLET BY MOUTH THREE TIMES DAILY WITH MEALS tramadol 50 mg tablet 50 mg PO Q6H PRN (Reason: pain) Qty: 90 1RF latanoprost 0.005 % drops 1 drp EYE-BOTH QPM Patient Comments: INSTILL 1 DROP IN BOTH EYES EVERY DAY AT BEDTIME Xarelto 20 mg tablet 20 mg PO DAILY Nitro-Bid 2 % ointment 1 inch transdermal DAILY PRN Rx Instructions: administer 2 doses/day (approx. 6 hrs apart); remove for 10-12 hrs per 24 hours metformin 500 mg tablet 500 mg PO BID Qty: 180 3RF albuterol sulfate 90 mcg/actuation HFA aerosol inhaler 2 puff inhalation Q6H PRN (Reason: shortness of breath or wheezing) Qty: 8.5 5RF metoprolol succinate 100 mg tablet extended release 24 hr 50 mg PO DAILY Referrals: Jameel Rosen MD [Primary Care Provider] -
[2022-08-18 06:45] LABS: INR 1.1 (0.9-1.3); Prothrombin Time 12.1 SECONDS (10.1-12.7)
[2022-08-18 06:48] LABS: PTT Partial Thromboplastin Tim 27 SECONDS (26-36)
[2022-08-18] MEDS: METOPROLOL ER 50 MG TABLET PO (06:52)
[2022-08-18 07:06] LABS: Alanine Aminotransferase 26 IU/L (<50); Albumin 4.7 g/dL (3.5-5.0); Alkaline Phosphatase 53 U/L (38-126); Aspartate Aminotransferase 29 IU/L (17-59); BUN Creatinine Ratio 18.8 (6-22); Bilirubin Total 0.8 mg/dL (0.2-1.3); Blood Urea Nitrogen 18 mg/dL (9-20); Calcium 9.6 mg/dL (8.4-10.2); Carbon Dioxide 24 mmol/L (22-32); Chloride 94 mmol/L (98-107); Creatine Kinase 47 U/L (55-170); Estimated Glomerular Filt Rate > 60 mL/min (>60); Globulin 2.4 g/dL (1.7-4.1); Glucose 331 mg/dL (80-110); HEMOLYSIS < 15 (0-50); Lipase 126 U/L (23-300); Magnesium 1.7 mg/dL (1.6-2.3); Potassium 4.1 mmol/L (3.4-5.1); Sodium 133 mmol/L (137-145); Total Protein 7.1 g/dL (6.3-8.2)
[2022-08-18 07:17] LABS: NT-proBNP (BNP-Adult 18+) 1070 pg/mL (<125); Troponin I 0.014 ng/mL (0.01-0.034)
[2022-08-18] MEDS: NITROGLYCERIN 0.4 MG SL TAB SL (07:46)
[2022-08-18 10:06] LABS: Troponin I 0.175 ng/mL (0.01-0.034)
[2022-08-18 10:49] LABS: COVID19 -Nasal RAPID Negative (Negative)
== END 2022-08-18 13:15 | disposition short-term general hospital (02) ==
PROVIDERS: Emergency Medicine; Emergency Provider Emergency Medicine; PCP Internal Medicine
DX: I21.4 Non-ST elevation (NSTEMI) myocardial infarction (principal); R55 Syncope and collapse; Z20.822 Contact with and (suspected) exposure to COVID-19
CPT/HCPCS: 36415; 71045; 80053; 82550; 83690; 83735; 83880; 84484; 85025; 85610; 85730; 87635; 93005; 93010; 99284; 99291; C9803